=== PATIENT | female | born 1945 | race Two or more races ===

== ENCOUNTER 2017-08-17 14:50 | Outpatient (CLI) | payer OTHER | END 2017-08-17 15:40 | disposition home or self-care (01) | LOC: SONOGRAMA 14:50 | DX: D44.0 Neoplasm of uncertain behavior of thyroid gland (principal); E04.1 Nontoxic single thyroid nodule ==

== ENCOUNTER 2017-10-16 09:00 | Outpatient (CLI) | payer OTHER | END 2017-10-16 09:21 | disposition home or self-care (01) | LOC: SONOGRAMA 09:00 | DX: E04.1 Nontoxic single thyroid nodule (principal) ==

== ENCOUNTER 2017-11-27 13:43 | Outpatient (CLI) | payer OTHER | END 2017-11-27 13:46 | disposition home or self-care (01) | LOC: RAD 13:43 | DX: J43.8 Other emphysema (principal); J44.9 Chronic obstructive pulmonary disease, unspecified; I70.0 Atherosclerosis of aorta ==

== ENCOUNTER → 2017-12-05 | Outpatient (CLI) | payer OTHER | END | disposition home or self-care (01) | LOC: TOM 10:22 | DX: R91.1 Solitary pulmonary nodule (principal) | CPT/HCPCS: 71270; Q9965 ==

== ENCOUNTER 2018-05-29 13:44 | Outpatient (CLI) | payer OTHER | END 2018-05-29 13:48 | disposition home or self-care (01) | LOC: MAMO-SONO 13:44 | DX: Z12.31 Encounter for screening mammogram for malignant neoplasm of breast (principal); Z87.898 Personal history of other specified conditions; N60.12 Diffuse cystic mastopathy of left breast; N60.22 Fibroadenosis of left breast ==

== ENCOUNTER 2018-08-06 11:03 | Outpatient (CLI) | payer OTHER | END 2018-08-06 11:09 | disposition home or self-care (01) | LOC: RAD 11:03 → SONOGRAMA 11:03 | DX: J44.9 Chronic obstructive pulmonary disease, unspecified (principal); I51.7 Cardiomegaly; I70.0 Atherosclerosis of aorta ==

== ENCOUNTER 2018-11-19 11:48 | Outpatient (CLI) | payer OTHER | END 2018-11-19 11:49 | disposition home or self-care (01) | LOC: SONOGRAMA 11:48 | DX: N60.11 Diffuse cystic mastopathy of right breast (principal); N60.12 Diffuse cystic mastopathy of left breast ==

== ENCOUNTER 2018-12-31 11:41 | Outpatient (CLI) | payer OTHER | END 2018-12-31 11:46 | disposition home or self-care (01) | LOC: RAD 11:41 | DX: M17.0 Bilateral primary osteoarthritis of knee (principal) ==

== ENCOUNTER 2019-01-30 13:41 | Outpatient (CLI) | payer OTHER | END 2019-01-30 13:43 | disposition home or self-care (01) | LOC: RAD 13:41 | DX: J44.9 Chronic obstructive pulmonary disease, unspecified (principal) ==

== ENCOUNTER → 2020-06-10 | Outpatient (CLI) | payer OTHER | END | disposition home or self-care (01) | LOC: MAMO-SONO 11:00 | PROVIDERS: ATTEND General Practice | DX: Z12.31 Encounter for screening mammogram for malignant neoplasm of breast (principal); Z13.89 Encounter for screening for other disorder; Z00.8 Encounter for other general examination ==

== ENCOUNTER 2021-04-14 10:16 | Outpatient (CLI) | payer OTHER | END 2021-04-14 10:18 | disposition home or self-care (01) | LOC: RAD 10:16 | PROVIDERS: ATTEND General Practice | DX: J44.9 Chronic obstructive pulmonary disease, unspecified (principal) ==

== ENCOUNTER 2022-03-15 09:37 | Outpatient (CLI) | payer OTHER | END 2022-03-15 09:43 | disposition home or self-care (01) | LOC: RAD 09:37 | PROVIDERS: ATTEND General Practice | DX: J44.9 Chronic obstructive pulmonary disease, unspecified (principal) ==

== ENCOUNTER 2022-09-12 13:56 | Outpatient (CLI) | payer OTHER | END 2022-09-12 14:11 | disposition home or self-care (01) | LOC: MAMO-SONO 13:56 | PROVIDERS: ATTEND Obstetrics & Gynecology | DX: Z12.31 Encounter for screening mammogram for malignant neoplasm of breast (principal); N60.11 Diffuse cystic mastopathy of right breast; N60.12 Diffuse cystic mastopathy of left breast ==

== ENCOUNTER 2023-07-17 11:20 | Outpatient (CLI) | payer OTHER | END 2023-07-17 11:28 | disposition home or self-care (01) | LOC: TOM 11:20 | PROVIDERS: ATTEND Urology | DX: N20.0 Calculus of kidney (principal); Z91.013 Allergy to seafood ==

== ENCOUNTER → 2023-08-08 10:25 | Outpatient (CLI) | payer OTHER ==
[2023-08-08 11:49] LABS: HEMOGLOBIN 13.3 g/dL (12.0-15.00); MEAN CELL VOLUME 93.6 fL (80.00-100.00); MEAN CORPUSCULAR HEMOGLOBIN 31.9 pg (27.00-32.0); MEAN CORPUSCULAR HGB CONC 34.1 g/dl (32.0-36.0); PLATELET COUNT 149 K/uL (150-450); RED BLOOD COUNT 4.16 M/uL (4.00-6.00); RED CELL DISTRIBUTION WIDTH 13.5 % (11.5-14.5)
[2023-08-08 12:04] LABS: ERYTHROCYTE SEDIMENTATION RATE 15 mm/hr
[2023-08-08 12:42] LABS: ALBUMIN 4.1 gm/dL (3.4-5.0); ALKALINE PHOSPHATASE 89 U/L (50-136); ALT/SGPT 36 U/L (12-78); ANION GAP 10 (10.0-20.0); AST/SGOT 19 U/L (15-37); BILIRUBIN TOTAL 1.26 mg/dL (0.3-1.2); BLOOD UREA NITROGEN 18 mg/dL (7-18); BUN CREA RATIO 20 (7.0-25.0); CALCIUM 9.8 mg/dL (8.5-10.1); CARBON DIOXIDE 35 mEq/L (21-32); CHLORIDE 103 mmol/L (98-107); CREATININE SERUM 0.88 mg/dL (0.55-1.02); GFR 61.83; GLOBULINA 3.1 G/DL (2.4-3.5); GLUCOSE FASTING 104 mg/dL (65-100); LDH 226 U/L (84-246); OSMOLALITY SERUM 289 MOSM/KG (275-295); POTASSIUM 3.61 mEq/L (3.5-5.1); SODIUM 144 mmol/L (136-145); TOTAL PROTEIN 7.2 gm/dL (6.4-8.2)
[2023-08-08 12:47] LABS: C-REACTIVE PROTEIN < 0.29 MG/DL (0.00-0.29)
[2023-08-10 08:10] LABS: IMMUNOGLOBULIN A 309 mg/dL (64-422); IMMUNOGLOBULIN G 891 mg/dL (586-1602); IMMUNOGLOBULIN M 59 mg/dL (26-217)
[2023-08-10 14:07] LABS: kappa lambda r 1.07 (0.26-1.65); kappa light 17.3 mg/L (3.3-19.4); lambda light 16.1 mg/L (5.7-26.3)
== END | disposition home or self-care (01) ==
LOC: LAB 10:25
PROVIDERS: ATTEND Internal Medicine Hematology & Oncology
DX: D64.9 Anemia, unspecified (principal); I77.6 Arteritis, unspecified; C90.00 Multiple myeloma not having achieved remission; C88.8 Other malignant immunoproliferative diseases; R74.01 Elevation of levels of liver transaminase levels; Z91.013 Allergy to seafood

== ENCOUNTER 2023-08-21 09:59 | Outpatient (CLI) | payer OTHER, BC | END 2023-08-21 10:09 | disposition home or self-care (01) | LOC: SONOGRAMA 09:59 | PROVIDERS: ATTEND Internal Medicine Hematology & Oncology | DX: C90.00 Multiple myeloma not having achieved remission (principal); D69.6 Thrombocytopenia, unspecified; D73.89 Other diseases of spleen; Z91.013 Allergy to seafood ==

== ENCOUNTER 2023-09-19 11:50 | Outpatient (CLI) | payer OTHER, BC | END 2023-09-19 12:00 | disposition home or self-care (01) | LOC: RAD 11:50 | DX: M53.3 Sacrococcygeal disorders, not elsewhere classified (principal); M46.1 Sacroiliitis, not elsewhere classified; M15.0 Primary generalized (osteo)arthritis ==

== ENCOUNTER 2023-11-28 11:41 | Outpatient (CLI) | payer OTHER, BC | END 2023-11-28 11:54 | disposition home or self-care (01) | LOC: MAMO-SONO 11:41 | PROVIDERS: ATTEND Obstetrics & Gynecology | DX: M89.50 Osteolysis, unspecified site (principal); N60.11 Diffuse cystic mastopathy of right breast; N60.12 Diffuse cystic mastopathy of left breast; Z12.31 Encounter for screening mammogram for malignant neoplasm of breast ==